=== PATIENT | female | born 1965 | race Caucasian/White ===

== ENCOUNTER → 2016-04-11 | Outpatient (CLI) | payer OTHER ==
[~2016-04-11] VITALS: Ht 167.6 cm; Wt 90.7 kg
[~2016-04-11] MED LIST: BYSTOLIC 5 MG5 M1 PO; HYDROCODON-ACE1 EAC5 PO; HYDROCODON-ACE1 EACH PO; HYDROCODONE-APA1 TA1 PO; IBUPROFEN 600600 M1 PO; KLONOPIN0.5 MG PO; LOVAZA1000 MG PO; MOBIC15 MG PO; MS CONTIN15 MG PO; NABUMETONE 750750 M1 PO; NORCO 7.5-3251 EACH PO; PEPCID AC20 M1 PO; PROZAC 20 MG20 M1 PO; PROZAC40 MG PO; TIZANIDINE HCL 22 M1 PO; VITAMIN D2000 UNIT PO
--- NOTE | ~2016-04-11 | HPC ---
[facility] [place] [address] PAIN MANAGEMENT CONSULTATION Name: DAMIANDOMINGA Ximena Room #: REG Masha Farmer#: [id number] Admission: 04/11/16 Attend Phys: Josr Hernandez DO Discharge: Date of : 65 Report #: [id number] THIS REPORT FOR: //name// CC: SHANON Hernandez The patient is a 50-year-old female seen in consultation at request of Dr. Alcaraz for evaluation of ongoing chronic pain concerns, lumbar radiculopathy status post decompressive laminectomy, axial back pain requiring complex medication management. She has been stable on hydrocodone 7.5/325, taking it to 6 a day for the past year. Prior she had actually been taking little higher dose. Currently, she notes pain is in the low back, left gluteal area, sometimes radiating to the anterior thigh and occasionally down to the posterior foot on the left side. She prior had a right-sided L4 hemilaminectomy and facetectomy in 2012. This afforded some relief, but pain recurred on the contralateral, i.e., left side. She notes pain currently is exacerbated with standing, walking and exercising and gets some relief when she is sitting. She describes burning, aching, pulling, gnawing, throbbing pain. She rates it anywhere from a 5-8 on a 0-10 visual analog scale. REVIEW OF SYSTEMS: Complete review of systems attached to chart and gone over with the patient. She is . She has a significant other with whom she lives. She smokes which she has since age 16 down to half a pack a day. Does not drink alcohol to excess. History of hypertension, treated with Bystolic, chronic anxiety for which she takes fluoxetine. Other than the aforementioned back surgery on 06/17/2014, she has had no other surgeries. Pain impact score averages about 5.8 for all indices queried. PHYSICAL EXAMINATION: Reveals a 5 feet 6 inch, 200 pound female, BMI is 32.3 kilograms per meter squared. Blood pressure 146/83, pulse 80, respirations 16. Cranial nerves 2-12 grossly intact. Pupils equal, reactive to light and accommodation. Extraocular muscles are intact. There is no nystagmus, lateral gaze deviation. Thyroid is unremarkable. She does have a little exophthalmus. Upper extremity strength is symmetric. Heart is regular and rhythmical without murmur. Lungs are clear to auscultation. Has a moderately endomorphic build. Rises from chair using armrest tenderness over the left SI joint. Gait is antalgic favoring the left leg. Lumbar flexion is good to 90+ degrees. Objectively left dorsiflexion strength is significantly limited about 2/5. Lower extremity extension strength on the left about 3/5. All other muscle groups including muscles of the right leg are 4-5/5. Patellar and Achilles reflexes are preserved, 2/4 and 1/4 respectively. Straight leg raise is negative. Positive Sebastian test on the left. Skin integument is intact. [facility] [address] [place] [address] PAIN MANAGEMENT CONSULTATION Name: DAMIANDOMINGA G Room #: REG CLMasha Farmer#: [id number] Admission: 04/11/16 Attend Phys: Josr Hernandez DO Discharge: Date of : 65 Report #: [id number] DIAGNOSTIC STUDIES: Most recent diagnostic study includes MRI of the cervical spine from 08/09/2014 showing left C6-C7 disk osteophyte and some moderate right-sided neural foraminal narrowing. She prior had some cervical radicular symptoms, which resolved conservatively. A spinal myelogram from 02/11/2014 notes 2 mm anterolisthesis of L4-L5, facet degenerative changes and sclerosis noted, broad-based disk bulge at L4-L5 blunting the left L4 nerve root. 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 The patient has become somewhat opiate habituated and tolerant. RECOMMENDATION: 1. We made a prolonged discussion with the patient today about therapeutic options including SI joint dysfunction treated with SI joint injection and strong recommendation for core strengthening. 2. Strong recommendation for smoking cessation, noting correlation of tobacco use with axial back pain. 3. Talked about opiate habituation and tolerance. She has been on short acting opiates for about 4 years now. I told her we will rotate to a long-acting opiate, MS Contin 15 mg q. 8 hours (currently is taking 45 mEq of morphine a day). I told her this may not give her the same neurologic sensation, it is not associated with the same relief of dopamine "craving," however, it will give her equally analgesic effect and in fact may actually be more efficacious as it is a "novel" opiate to her system and she is likely to become quite tolerant to 4 years exposure to relatively high dose hydrocodone. We entered into an opiate consent to treat contract. The patient understands her rights and responsibilities in this regard. The patient was discharged in good and stable condition. We will plan on moving forward with left SI joint injection under fluoroscopy and referral to physical therapy at next visit. <ELECTRONICALLY SIGNED> By: Josr Hernandez DO 04/15/16 0917 [id number] [id number] Josr Hernandez DO /krishan
[2016-04-11 13:14] VITALS: BP 146/83
== END | disposition home or self-care (01) ==
LOC: PAIN 07:20
DX: M54.16 Radiculopathy, lumbar region (principal); G89.29 Other chronic pain; M53.3 Sacrococcygeal disorders, not elsewhere classified; M54.12 Radiculopathy, cervical region; F11.20 Opioid dependence, uncomplicated; M19.90 Unspecified osteoarthritis, unspecified site; Z98.890 Other specified postprocedural states

== ENCOUNTER → 2016-04-26 | Outpatient (CLI) | payer OTHER ==
[~2016-04-26] VITALS: Ht 167.6 cm; Wt 99.2 kg
--- NOTE | ~2016-04-26 | HPC ---
[facility] [address] [place] [address] PAIN MANAGEMENT CONSULTATION Name: DOMINGA SALGADO Room #: REG [facility] [id number] Admission: 04/26/16 Attend Phys: Josr Hernandez DO Discharge: Date of : 65 Report #: [id number] THIS REPORT FOR: //name// CC: SHANON Hernandez The patient is a 50-year-old female previously seen in the pain clinic 04/11/2016, diagnosed with symptomatic lumbar radiculopathy status post decompressive laminectomy, axial back pain, SI joint dysfunction, component of cervical radiculopathy requiring complex medication management. The patient was started on MS Contin 15 mg q. 8 hours. She feels this is efficacious, but is having some insomnia. After discussion, we have elected to use a short course of clonazepam 0.5 mg at bedtime for 10 days. She presents to pain clinic today for fluoroscopic-guided lumbar epidural injection for ongoing radicular pain. ASSESSMENT: Symptomatic lumbar radiculopathy. PROCEDURE: Lumbar epidural injection under fluoroscopy. PROCEDURE: Lumbar epidural steroid injection. PROCEDURE NOTE: After both written and informed consent to include risk of spinal cord damage, increased pain, weakness and dural puncture, the patient was taken to the fluoroscopy suite, placed in the prone position. After sterile prep and drape, a skin wheal with lidocaine was raised. A 22-gauge epidural Tuohy needle was inserted in the midline at L4-L5 with good loss to resistance. Negative aspiration for cerebrospinal fluid or blood was noted. Then 1 mL of Omnipaque under biplanar fluoroscopy showed good spread within the epidural space. This was followed with 80 mg of triamcinolone plus 1 mL of 1.5% preservative-free Xylocaine, 0.5 mL Xylocaine was then injected to flush the needle; it was removed. The patient was monitored for an appropriate period of time and discharged in good and stable condition. <ELECTRONICALLY SIGNED> By: Josr Hernandez DO 04/29/16 1228 [id number] 0516 Josr Hernandez DO /nt
[2016-04-26 14:10] VITALS: BP 134/91
== END | disposition home or self-care (01) ==
LOC: PAIN 07:11
DX: M54.16 Radiculopathy, lumbar region (principal); M54.12 Radiculopathy, cervical region; M53.3 Sacrococcygeal disorders, not elsewhere classified; Z98.890 Other specified postprocedural states; F17.210 Nicotine dependence, cigarettes, uncomplicated

== ENCOUNTER → 2016-06-13 | Outpatient (CLI) | payer OTHER ==
[~2016-06-13] VITALS: Ht 167.6 cm; Wt 99.5 kg
--- NOTE | ~2016-06-13 | HPC ---
[facility] [place] [address] PAIN MANAGEMENT CONSULTATION Name: DOMINGA SALGADO Room #: REG Masha Farmer#: [id number] Admission: 06/13/16 Attend Phys: Josr Hernandez DO Discharge: Date of : 65 Report #: [id number] THIS REPORT FOR: //name// CC: SHANON Hernandez The patient is a 51-year-old female, last seen in the pain clinic on 2016. She was initially seen in consultation on 04/11/2016. We did a midline epidural injection at L4-L5 on 04/26/2016. She returned 05/13/2016. She is status post lumbar decompressive laminectomy, notes that following the injection, the lumbar radicular symptoms on the right side have improved, did have some left-sided SI pain, actually had a little weakness in the left pattern suggesting an L4 radiculopathy as well. The patient is continuing to use hydrocodone. We elected to rotate the MS Contin 15 mg q.8 h ours for 4 weeks. The patient returns to pain clinic today, noting she had some efficacy with morphine 15 mg q. 8 hours, she states she just got back from [place] where she did a fair bit of walking. The long flight last night did exacerbate back pain, she rates her pain 6-1/2 on a 0-10 visual analog scale. Pain is low back, front of the left thigh. PHYSICAL EXAMINATION: Shows a 51-year-old female. BMI is 35.4 kg/m2. Vital signs are stable as noted in the EMR. Rises from chair easily. Lumbar flexion is modestly limited. She does have slight decreased left hip flexion strength. Straight leg raise; however, is negative. Diffuse tenderness across the low back. Pain is exacerbated with rotating and side bending, left greater than right. ASSESSMENT: Lumbar spondylosis in a patient with a history of lumbar decompressive laminectomy, sacroiliac joint dysfunction, requiring complex medication management. RECOMMENDATION: Long discussion with the patient today about therapeutic options. 1. Discontinue smoking. We reviewed relationships of nicotine use and axial back pain. 2. We will have the patient start to wean off the MS Contin, she has about 9 tablets left, suggest she use 1 at night. We will rotate back to hydrocodone 7.5/325 one tablet 3-4 times a day, limit 120 tablets for 30 days. 3. Use a short course of nabumetone 750 b.i.d. and tizanidine 2 mg 1 after work and 1-2 at bedtime while working through physical therapy for core strengthening and core stabilization exercises. Physical therapy consult was accomplished today. Follow up in 4 weeks to evaluate efficacy of physical therapy and medication management. Hopefully, continue to wean opiates. We will review for consideration for epidural injection versus facet joint injections depending on clinical exam at that time. [address] [address] PAIN MANAGEMENT CONSULTATION Name: DAMIANDOMINGA Ximena Room #: RAYMOND Farmer#: [id number] Admission: 06/13/16 Attend Phys: Josr Hernandez DO Discharge: Date of : 65 Report #: [id number] Thank you for allowing me to participate in the patient's care. By: 1557 0217 Josr Hernandez DO /nt
== END | disposition home or self-care (01) ==
LOC: PAIN 06:55
DX: M47.896 Other spondylosis, lumbar region (principal); M53.3 Sacrococcygeal disorders, not elsewhere classified; F17.200 Nicotine dependence, unspecified, uncomplicated; Z98.890 Other specified postprocedural states

== ENCOUNTER → 2016-07-12 | Outpatient (CLI) | payer OTHER ==
[~2016-07-12] VITALS: Ht 167.6 cm; Wt 99.3 kg
--- NOTE | ~2016-07-12 | HPC ---
[facility] [place] [address] PAIN MANAGEMENT CONSULTATION Name: DOMINGA SALGADO Room #: REG [facility] Steve.#: [id number] Admission: 07/12/16 Attend Phys: Josr Hernandez DO Discharge: Date of : 65 Report #: [id number] THIS REPORT FOR: //name// CC: TONI physician/PCP Josr Hernandez HISTORY OF PRESENT ILLNESS: The patient is a 51-year-old female seen in followup, last visit was 06/13/2016. The patient was seen for a prolonged visit from 12:50 to 13:20, greater than 50% of this 30 minute visit was spent counseling the patient. She was initially seen in consultation on 04/11/2016, diagnosed as symptomatic lumbar radiculopathy status post decompressive laminectomy, axial back pain, possible component of SI joint dysfunction requiring complex medication management. The patient has been taking hydrocodone 7.5/325 six or more a day. Concern for opiate habituation, I have rotated MS Contin 15 mg q. 8 hours. She returned to the pain clinic on 04/26/2016. We progressed with an epidural injection under fluoroscopy at L4-L5. Follow up 05/13/2016, the patient reported nominal relief from the injection. Physical exam showed some component of weakness to dorsiflexion, lower extremity extension on the left. She is very tender over the SI joints with a positive Sebastian test. At that time, I recommended physical therapy. I again counseled the patient regarding smoking cessation and caloric restriction. I did renew MS Contin 15 mg q. 8 hours. The patient returned to the pain clinic on 06/13/2016. She was nominally using MS Contin 15 mg q. 8 hours, but continuing to use hydrocodone. Complaining primarily of left low back (SI) pain with some pain in the left groin and leg. Long discussion with the patient today, again encouraged smoking cessation, discussed relationship with nicotine and axial back pain. Given that the patient continued to take hydrocodone with concurrent MS Contin, I elected to try and wean her opiate load altogether. We dropped MS Contin back to b.i.d. for 3 days with 1 at night for 3 days and then discontinue, continued hydrocodone 7.5/325 enabling her to take up to 4 a day. Tried nabumetone 750 b.i.d. and tizanidine 2 mg to be used after physical therapy and as needed for spasm. She returns to pain clinic today and again we had a prolonged visit. She did see a psychiatrist, Dr. Kandy Vallejo who recognized the patient's concern for anxiety and habituation issues and suggested Suboxone as a therapeutic option. The patient reports ongoing low back pain, primarily left SI, deep pain in the left thigh with episodic radiation to the left calf. She does have some chronic paresthesia in the left foot. Historically, the patient did have a decompressive laminectomy in [address] [address] PAIN MANAGEMENT CONSULTATION Name: DAMIANDOMINGA Room #: REG DERRICK Farmer#: [id number] Admission: 07/12/16 Attend Phys: Josr Hernandez DO Discharge: Date of : 65 Report #: [id number] right radicular symptoms, which were improved following the surgery. CT myelogram on 02/11/2014 subsequent to the back surgery did note some blunting of the left L4 nerve root with little anterolisthesis at this level. The patient is complaining of pain at 5/10 on a 0-10 visual analog scale. She is tearful and clearly exhibiting some anxiety. She has been prescribed clonazepam 1 mg at bedtime, but has not started this medicine yet. PHYSICAL EXAMINATION: Shows 51-year-old female, BMI is 35.4 kilograms per meter squared. Blood pressure is elevated today at 166/99, pulse is 88, respirations 16. She was alert and oriented to person, place, and time, judged to be a reasonable historian. Again, little bit tearful. Rises from chair using armrest. Gait is tandem. Lower extremity strength is objectively symmetric. Straight leg raise is negative at this time. Patellar and Achilles reflexes are preserved. She is tender over the SI joints, left and right. Sebastian test is positive bilaterally. Piriformis examination does not show exacerbation of pain. RECOMMENDATIONS: 1. Long discussion with the patient today about therapeutic options. She never did follow up with physical therapy, which I strongly encouraged for axial back pain and SI pain. 2. Again recommended smoking cessation. 3. Talked about possibly performing SI joint injection under fluoroscopy for specific left SI pain. 4. I agree that Suboxone would be an explanation for this patient. She, however, is very anxious about starting another agent. She expressed desire in weaning off of opiates altogether. I would support this idea, but I am little concerned that she has been unable to. When I prescribed the MS Contin I had expressed that I wanted the patient to take ibuprofen only for extreme pain and on a nondaily basis, yet she has continued, I had written for not more than 4 hydrocodone a day and again on a p.r.n. basis at last visit, but she has taken this aggressively and is now out of medication. I reviewed the patient's opiate consent to treat contract. Today, I have elected to continue hydrocodone 7.5/325 four a day for 7 days, dispensed 28 tablets. I gave her a prescription to release in 7 days for hydrocodone 7.5/325 21 tablets to be taken 3 times a day. I will see her back at that time. I do suggest she start the Klonopin 1 mg at bedtime. At next visit, we will plan on weaning to hydrocodone 7.5/325 b.i.d. for 7 days and then hydrocodone 5/325 b.i.d. for 7 days. If at some point, the patient reaches a plateau and cannot move forward, I would entertain the possibility of using a single dose hydrocodone extended release tablet. This would afford some analgesic efficacy, but should avoid the dopamine release with peaks and troughs of short-acting opiates. Again, strongly recommend smoking cessation and that the patient [address] [address] PAIN MANAGEMENT CONSULTATION Name: DOMINGA SALGADO Room #: REG DERRICK Farmer#: [id number] Admission: 07/12/16 Attend Phys: Josr Hernandez DO Discharge: Date of : 65 Report #: [id number] follows through with physical therapy. We will seek authorization for bilateral SI joint injection under fluoroscopy at next visit. <ELECTRONICALLY SIGNED> By: Josr Hernandez DO 07/15/16 0750 1538 0023 Josr Hernandez, DO /nt
--- NOTE | ~2016-07-12 | HPC ---
[facility] [address] [place] [address] PAIN MANAGEMENT CONSULTATION Name: DOMINGA SALGADO Room #: REG DERRICK Farmer#: [id number] Admission: 07/12/16 Attend Phys: Josr Hernandez DO Discharge: Date of : 65 Report #: [id number] THIS REPORT FOR: //name// <ELECTRONICALLY SIGNED> By: Josr Hernandez DO 07/15/16 0750 1529 2312 Josr Hernandez DO /nt
[2016-07-12 12:44] VITALS: BP 166/99
== END | disposition home or self-care (01) ==
LOC: PAIN 07:15
DX: M54.5 Low back pain (principal); F41.9 Anxiety disorder, unspecified; I10 Essential (primary) hypertension; F17.210 Nicotine dependence, cigarettes, uncomplicated; M19.90 Unspecified osteoarthritis, unspecified site

== ENCOUNTER → 2016-07-25 | Outpatient (CLI) | payer OTHER ==
[~2016-07-25] VITALS: Ht 165.1 cm; Wt 100.0 kg
[~2016-07-25] MED LIST changes: +HYSINGLA ER30 MG PO
--- NOTE | ~2016-07-25 | HPC ---
[facility] [place] [address] PAIN MANAGEMENT CONSULTATION Name: DOMINGA SALGADO Room #: REG Masha Wilson.#: [id number] Admission: 07/25/16 Attend Phys: Josr Hernandez DO Discharge: Date of : 65 Report #: [id number] THIS REPORT FOR: //name// CC: SHANON Hernandez HISTORY OF PRESENT ILLNESS: The patient is a 51-year-old female being treated for lumbar radiculopathy status post decompressive laminectomy, axial back pain, SI joint dysfunction requiring complex medication management. Last seen in the pain clinic on 07/12/2016, we authorized left SI joint injection under fluoroscopy due to ongoing lumbar radicular pain. The patient was continued on opiate analgesics for pain. She had surgery about 4 years ago which helped with the right lumbar radicular pain. She has ongoing left radicular pain with notable weakness in the left leg to hip flexion, extension and dorsiflexion. Has subjective paresthesia in the left foot. The patient had weaned off hydrocodone 7.5/325 3-4 a day with increasing pain and decreased functional status. She returns to pain clinic today noting pain is quite problematic, left hip, posterior buttock and thigh with paresthesia in the leg. Most recent diagnostic study is somewhat dated CT myelogram from 2013. ASSESSMENT: 1. Symptomatic lumbar radiculopathy status post decompressive laminectomy with ongoing left L4-L5 radicular pain. 2. Left sacroiliac-mediated pain with positive Sebastian test and pain in the SI joint. 3. Complex medication management. RECOMMENDATIONS: 1. After discussion with the patient, we elected to trial a single long-acting opiate, Hysingla ER 30 mg 1 a day. The patient was given a prescription for same. Given that it might take a week or more to get prior authorization, we did give her a short course for hydrocodone 7.5/325 one tablet up to 4 times a day, limit 28 tablets. 2. For acute exacerbation of left SI joint dysfunction, recommendation left SI joint injection under fluoroscopy. PROCEDURE NOTE: After written informed consent was obtained, the patient was taken to the fluoroscopy suite and placed in prone position. After sterile prep and drape, skin was raised. A 22-gauge stylet needle was placed to contact the inferior aspect of the left SI joint. Negative aspiration was accomplished. 1 mL of Omnipaque was injected, which showed spread within the joints followed with 40 mg triamcinolone plus 2 mL of 0.5% preservative-[place] [address] PAIN MANAGEMENT CONSULTATION Name: DAMIANDOMINGA G Room #: REG Masha Farmer#: [id number] Admission: 07/25/16 Attend Phys: Josr Hernandez DO Discharge: Date of : 65 Report #: [id number] Needle was removed. The area was cleansed, Band-Aids applied. The patient monitored for an appropriate period of time. Discharged in good and stable condition, noting significant improvement of baseline pain. In fact, noted pain was absent on discharge. <ELECTRONICALLY SIGNED> By: Josr Hernandez DO 07/26/16 0925 1503 0010 Josr Hernandez DO /nt
[2016-07-25 12:50] VITALS: BP 145/89
== END | disposition home or self-care (01) ==
LOC: PAIN 07:59
DX: M53.3 Sacrococcygeal disorders, not elsewhere classified (principal); M54.16 Radiculopathy, lumbar region; F17.200 Nicotine dependence, unspecified, uncomplicated; Z98.890 Other specified postprocedural states

== ENCOUNTER → 2016-08-07 | Outpatient (CLI) | payer OTHER | LOC: MRI 02:53 | DX: M47.896 Other spondylosis, lumbar region (principal); M54.5 Low back pain ==

== ENCOUNTER → 2016-08-09 | Outpatient (CLI) | payer OTHER ==
[~2016-08-09] VITALS: Ht 165.1 cm; Wt 95.3 kg
--- NOTE | ~2016-08-09 | HPC ---
[facility] [place] [address] PAIN MANAGEMENT CONSULTATION Name: DOMINGA SALGADO Room #: REG [facility] Steve.#: [id number] Admission: 08/09/16 Attend Phys: Josr Hernandez DO Discharge: Date of : 65 Report #: [id number] THIS REPORT FOR: //name// CC: FAM unknown Josr Hernandez HISTORY OF PRESENT ILLNESS: The patient is a 51-year-old female. She was initially seen on 04/11/2016 complaining of ongoing back pain status post lumbar decompressive laminectomy, taking hydrocodone 7.5/325 six a day for nearly 4 years. Physical exam at that time showed primarily SI-mediated pain, concerned for opiate habituation and tolerance. I talked about rotating the patient to long-acting opiate, we tried MS Contin 15 mg q. 8 hours equivalent to the hydrocodone she had been taking. We sought authorization for epidural injection for recurrence of radicular pain, which was accomplished on 04/26/2016. She felt the MS Contin was efficacious at that time. She returned to the pain clinic on 05/13/2016. She had some ongoing left-sided SI pain. She is complaining of pain in the left buttock, posterior thigh. Some weakness on dorsiflexion and plantarflexion on this side. Very tender over the SI joint. Encouraged continued activity. I renewed MS Contin at that time. She followed up on 06/13/2016. She notes that she is still having some ongoing left-sided pain (her prior back surgery was for right-sided pain). It came to my attention at that visit that while she was using the MS Contin 15 mg q. 8 hours, she has continuing to use hydrocodone concurrently. I told the patient that this was absolutely not our intention. We had simply increased her opiate load and our goal was to convert to a long-acting opiate and wean off. At that time, we discontinued the MS Contin and I suggested a short course of hydrocodone 7.5/325. The patient was unable to wean off of hydrocodone as per her last visit. She was unable to quit smoking. We talked about consideration for left SI joint injection at that time. We entered into an opiate consent to treat contract on 07/12/2016. I wrote for specific weaning dose of hydrocodone 3 a day for 7 days, 2 a day for 7 days, 1 a day for 7 days. She returned to the pain clinic on 07/25/2016. Progressed with a left SI joint injection, she had weaned off of hydrocodone at that time. She returns to pain clinic today again for prolonged visit. She was seen from 14:42-15:10, greater than 50% of this time spent counseling the patient. She has ongoing pain, left SI notes that the SI joint injection afforded excellent relief of the acute pain, but it was only for a few days. It did not affect her radicular pain, that being pain in the left thigh. PHYSICAL EXAMINATION: Today shows 51-year-old female, BMI is 34.9 kilograms per meter squared. Subjective pain score is 7/10 stating she is still having terrible pain. She states that hydrocodone helped her pain. Blood pressure is elevated at 154/102, pulse 81, respirations 16. Rises from chair [facility] [address] [place] [address] PAIN MANAGEMENT CONSULTATION Name: DOMINGA SALGADO Room #: REG [facility] Farmer#: [id number] Admission: 08/09/16 Attend Phys: Josr Hernandez DO Discharge: Date of : 65 Report #: [id number] using armrest. Gait is tandem. Point tenderness over the left SI. Lumbar flexion is good. Modest decreased left hip flexion strength compared to the right (I had noted prior weakness on this side, but really it is fairly nominal at this time). I reviewed the MRI with contrast we had obtained on 08/07/2016. Currently, fairly unremarkable. Some fluid in the left facet at L4-L5, though they are not reporting any significant compromise at this level. Slight anterolisthesis of L4-L5 developed since prior 2013 study. No focal disk at L3-L4 compatible with the left L3 subjective pain pattern. Again, concern for some SI joint dysfunction. ASSESSMENT AND RECOMMENDATIONS: 1. Long discussion with the patient today about therapeutic options. 2. Physical therapy for core stabilization. 3. She has a followup appointment with Dr. Gaurav Alcaraz, I suggested she keep it. We did order a copy of the MRI to take to his office. After a long discussion, I have elected to somewhat reluctantly renew hydrocodone 7.5/325 to take 1 tablet up to 3 times a day, absolute mandate not to take on a daily basis, limit 60 tablets for 30 days. Follow up in 30 days for reevaluation. We will want to get a urine drug screen at next visit. I would like to hear Dr. Alcaraz's thoughts so I do not really see any specific surgical pathology, I will defer to his opinion. We did talk briefly about the iFuse procedure for SI-mediated pain. If the patient continues to have problems weaning opiates, we will be left with few other options other than rotating to Suboxone and weaning from that point. <ELECTRONICALLY SIGNED> By: Josr Hernandez DO 08/14/16 [id number] Josr Hernandez DO /rkishan
[2016-08-09 14:35] VITALS: BP 154/102
== END | disposition home or self-care (01) ==
LOC: PAIN 07:10
DX: M53.3 Sacrococcygeal disorders, not elsewhere classified (principal); F11.20 Opioid dependence, uncomplicated; F17.210 Nicotine dependence, cigarettes, uncomplicated